=== PATIENT | male | born 1965 | race Two or more races ===

== ENCOUNTER 2019-12-24 19:38 | Inpatient (IN) | payer OTHER, SELFPAY ==
--- NOTE | 2019-12-24 | US_ITS ---
EXAMINATION: ULTRASOUND OF KIDNEYS. CLINICAL INFORMATION: Known renal stones. Assess for obstructive hydronephrosis. COMPARISON: CT abdomen pelvis 09/03/2016 TECHNIQUE: Grayscale ultrasound and color Doppler exam of kidneys. FINDINGS: Right kidney: The kidney measures 11.9 x 5.6 x 5.9 cm. There is moderate hydronephrosis. There is distention renal pelvis calyces and the ureter. There is an obstructing stone in the distal ureter measuring 0.6 x 0.4 x 0.6 cm. No ureteral jet present in the bladder. There is a nonobstructive 3 mm stone in the upper pole the right kidney. Left kidney: The kidney measures 11.6 x 5.6 x 5.1 cm. There is no hydronephrosis or hydroureter. Ureteral jet is seen on the left in the bladder. There is a nonobstructive stone in the midpole measuring 3 mm. In the upper pole there is a septated 1.6 cm cyst. The septation is thin. Bladder: Ureteral jet seen on the left but not on the right. IMPRESSION: 1. Moderate hydronephrosis of right kidney. Obstructing 6 mm stone in the distal left ureter. 2. Nonobstructive 3 mm stone upper pole right kidney. 3. Nonobstructive 3 mm stone mid pole of left kidney. 4. Septated cyst upper pole cortex left kidney 1.6 cm.
--- NOTE | 2019-12-24 | CT_ITS ---
EXAMINATION: CT ABDOMEN AND PELVIS WITHOUT CONTRAST CLINICAL INFORMATION: Abdominal pain, bilateral renal colic. COMPARISON: Ultrasound kidneys earlier today and CT abdomen and pelvis 09/03/2016. TECHNIQUE: Multidetector volumetric imaging was performed from the superior aspect of the liver through the pubic symphysis. Sagittal and coronal reformatted images were obtained on the technologist's workstation. This CT examination was performed using dose optimization techniques as appropriate, variously including the following: *Automated exposure control. *Adjustment of mA and/or kV according to patient size (this includes techniques or standardized protocols for targeted exams where dose is matched to indication/reason for exam; i.e. extremities or head). *Use of iterative reconstruction technique. DLP: 524 mGy-cm FINDINGS: LUNG BASES: The visualized lung bases are unremarkable. LIVER, GALLBLADDER, AND BILIARY TREE: The liver demonstrates hepatic steatosis. No focal mass or bile duct dilatation is seen. The gallbladder is unremarkable with no evidence of radiopaque gallstones, gallbladder wall thickening, or obvious pericholecystic inflammatory changes. PANCREAS: Unremarkable. SPLEEN: Unremarkable. ADRENAL GLANDS: Unremarkable. KIDNEYS AND URETERS: Right: Right-sided hydronephrosis is present along with dilatation of the ureter down to the level of an obstructing 4.2 x 2.9 x 3.9 mm ureteral stone approximately 5 cm above the ureterovesical junction. Interestingly, the CT scan performed in 2016 demonstrated an obstructing calculus at the exact same level. At least 3 other small punctate non-obstructing calculi are seen in the right kidney, the largest measuring 2.6 mm. No renal masses are seen. Left: A single tiny 2 mm punctate calcification is present in the mid left kidney. No left-sided hydronephrosis is seen. A small cyst is noted at the very upper pole of the left kidney. No solid renal masses are detected. The left ureter is not dilated. BLADDER AND PROSTATE: The bladder is small with a symmetrically thickened wall. No bladder calculi are seen. The prostate is moderately enlarged measuring 4.5 x 3.8 x 3.2 cm. Seminal vesicles appear normal. GASTROINTESTINAL TRACT: The small and large bowel are unremarkable. The appendix is unremarkable. ABDOMINAL WALL: No significant hernia is appreciated. LYMPH NODES: No retroperitoneal adenopathy. VASCULAR: Mild calcific atherosclerotic changes are present. PELVIC VISCERA: An abnormal pelvic mass is not seen. No free fluid is present. OSSEOUS STRUCTURES: Unremarkable. IMPRESSION: 1. Obstructing right distal ureteral calculus measuring 4.2 x 2.9 x 3.9 mm. Interestingly, in 2017 an obstructing stone was present at the exact same level. 2. Bilateral non-obstructing intrarenal punctate calculi. 3. BPH. 4. Hepatic steatosis.
[2019-12-24 19:41] VITALS: BP 191/108; PULSE 104; RESP 18; TEMP 36.4; O2SAT 96; BMI 24.0
[2019-12-24 19:57] VITALS: BP 178/119; PULSE 96; RESP 20; TEMP 36.8; O2SAT 98
--- NOTE | 2019-12-24 20:00 | ED.MALEGU ---
HPI - Male Genitourinary General Chief complaint: Urogenital-Male <JUANJOSE Glasgow - Last Filed: 12/24/19 21:11> Stated complaint: kidney stones <JUANJOSE Glasgow - Last Filed: 12/24/19 21:11> Time Seen by Provider: 12/24/19 19:55 <JUANJOSE Glasgow - Last Filed: 12/24/19 21:11> Source: patient <JUANJOSE Glasgow - Last Filed: 12/24/19 21:11> Mode of arrival: ambulatory <JUANJOSE Glasgow - Last Filed: 12/24/19 21:11> Limitations: no limitations <JUANJOSE Glasgow - Last Filed: 12/24/19 21:11> History of Present Illness HPI Narrative: 54 y/o male with history of hepatitis C s/p treatment, asthma, HTN, history of kidney stones requiring intervention by Urology in [facility] in 2011 presenting with right sided flank pain. He was seen at [facility] recently and diagnosed with kidney stones. <JUANJOSE Glasgow - Last Filed: 12/24/19 21:11> Onset (ago): day(s) <JUANJOSE Glasgow - Last Filed: 12/24/19 21:11> Duration: intermittent <JUANJOSE Glasgow - Last Filed: 12/24/19 21:11> Location: right flank <JUANJOSE Glasgow - Last Filed: 12/24/19 21:11> Radiation: right inguinal region <JUANJOSE Glasgow - Last Filed: 12/24/19 21:11> Severity: severe <JUANJOSE Glasgow - Last Filed: 12/24/19 21:11> Severity scale (1-10): 10 <JUANJOSE Glasgow - Last Filed: 12/24/19 21:11> Quality: sharp <JUANJOSE Glasgow - Last Filed: 12/24/19 21:11> Relieving factors: none <JUANJOSE Glasgow - Last Filed: 12/24/19 21:11> Exacerbating factors: movement <JUANJOSE Glasgow - Last Filed: 12/24/19 21:11> Associated symptoms: Reports blood in urine and nausea/vomiting <JUANJOSE Glasgow - Last Filed: 12/24/19 21:11> Related Data Allergies/Adverse reactions: Allergies Allergy/AdvReac Type Severity Reaction Status Date / Time No Known Allergies Allergy Verified 12/24/19 19:41 <JUANJOSE Glasgow - Last Filed: 12/24/19 21:11> Review of Systems Review of Systems: Constitutional: No Fever, No Chills ENT/Mouth: No sore throat, No Rhinorrhea, No Swallowing Difficulty Eyes: No Eye Pain, No Swelling, No Redness Cardiovascular: No Chest Pain, No SOB, No Orthopnea Respiratory: No Cough, No Sputum, No Wheezing Gastrointestinal: + Nausea, + Vomiting, No Diarrhea, + abdominal Pain, No Hematochezia, No Melena Genitourinary: + Dysuria, No Urinary Frequency,+ Hematuria Musculoskeletal: No joint pain, No Myalgias Skin: No Skin Lesions, No rash Neuro: No Weakness, No Numbness, No Dizziness, No Headache Psych: No Anxiety/Panic, No Depression Heme/Lymph: No Bruising, No Lymphadenopathy Endocrine: No Polyuria, No Polydipsia All other 10 point ROS are negative. <JUANJOSE Glasgow - Last Filed: 12/24/19 21:11> [facility] Past Medical History Attestation statement: The following information was validated with the patient. <JUANJOSE Glasgow - Last Filed: 12/24/19 21:11> Medical History: Medical History Asthma Kidney stones <JUANJOSE Glasgow - Last Filed: 12/24/19 21:11> Social History Social History: Social History Alcohol intake: current Alcohol intake frequency: a few times a week Smoking Status: Current every day smoker Smoked in Last 30 Days: Yes Use of substances other than those prescribed or required for medical reasons: No Advance Directives: No Advance Directives Information Provided: Yes <JUANJOSE Glasgow - Last Filed: 12/24/19 21:11> Physical Exam Vital Signs and I&O and Narrative: Vital Signs and I&O: Vital Signs Temp 98.0 F 12/24/19 22:17 Pulse 86 12/24/19 22:17 Resp 18 10/04/20 22:17 BP 176/101 H 12/24/19 22:17 Pulse Ox 98 12/24/19 22:17 Intake & Output 12/24/19 12/24/19 12/25/19 06:59 18:59 06:59 Intake Total 1000 / 1000 Balance 1000 / 1000 Weight 73.936 kg Intake: Intake, IV Amoun t 1000 / 1000 0.9 % Sodium C hloride 1,000 ml 1000 / 1000 @ 999 mls/hr I VCONT .Q1H1M [facility] Rx#:[id number] Body Mass Index 24.0 Appearance: appears uncomfortable, appears to be in pain Eyes: Pupils equal, round and reactive to light. Neck: Normal inspection. Neck supple. CVS: rapid heart rate, regular rhythm. Pulses normal. Respiratory: No respiratory distress. Breath sounds normal. Abdomen: Soft. tender RLQ. +BS x4, +CVA tenderness on the right Skin: Skin warm and dry. Normal skin color. Normal skin turgor. No rashes. Extremities: No lower extremity edema. Neuro: Oriented X 3. No motor deficit. No sensory deficit. <JUANJOSE Glasgow - Last Filed: 12/24/19 21:11> Vital Signs and I&O: Vital Signs Temp 98.0 F 12/24/19 22:17 Pulse 86 12/24/19 22:17 Resp 18 12/24/19 22:17 BP 176/101 H 12/24/19 22:17 Pulse Ox 98 12/24/19 22:17 Intake & Output 12/24/19 12/24/19 12/25/19 06:59 18:59 06:59 Intake Total 1000 / 1000 Balance 1000 / 1000 Weight 73.936 kg Intake: Intake, IV Amoun t 1000 / 1000 0.9 % Sodium C hloride 1,000 ml 1000 / 1000 @ 999 mls/hr I VCONT .Q1H1M [facility] Rx#:[id number] Body Mass Index 24.0 <Orlin Fulton DO - Last Filed: 12/24/19 23:26> Course Course Hospital Course: patient presenting with right flank pain and known right kidney stones dx at [facility] last week per patient - trying to obtain records now. will get labs, UA and Renal U/S to assess for obstructive uropathy/hydropneohrosis. IV morphine, IV decadron, IVF ordered for now. Dispo pending results and improvement. <JUANJOSE Glasgow - Last Filed: 12/24/19 21:11> MDM - Male Genitourinary MDM Narrative Medical decision making narrative: concern for obstructive kidney stone vs pyelonpehritis. <JUANJOSE Glasgow - Last Filed: 12/24/19 21:11> Differential Diagnosis Differential diagnosis: Likely urinary tract infection, urethritis, epididymitis and acute retention of urine <JUANJOSE Glasgow - Last Filed: 12/24/19 21:11> Lab Data Attestation: I reviewed the patient's lab results. <JUANJOSE Glasgow - Last Filed: 12/24/19 21:11> Result diagrams: : 12/24/19 20:27 12/24/19 20:27 <JUANJOSE Glasgow - Last Filed: 12/24/19 21:11> Labs: Lab Results 12/24/19 12/24/19 12/24/19 Range/Units 20:27 20:27 20:27 WBC 8.6 (4.8-10.8) X10*3/uL RBC 4.65 (4.60-5.80) X10*6/uL Hgb 16.7 (14.0-18.0) g/dl Hct 46.6 (42-52) % MCV 100.2 H (80-98) fL MCH 35.9 H (27.0-33.0) pg MCHC 35.8 (31.0-36.0) g/dl RDW 14.1 (11.0-16.0) % Plt Count 268 (160-400) X10*3/uL MPV 9.9 (9.4-12.4) fL Immature Gran % (Auto) 0.3 (0.0-0.4) % Neut % (Auto) 68.2 (45-73) % Lymph % (Auto) 21.0 (20-40) % [place] % (Auto) 8.7 (2-11) % Eos % (Auto) 1.2 (0-4) % Baso % (Auto) 0.6 (0-2) % Neut # (Auto) 5.9 (2.0-8.3) X10*3/uL Lymph # (Auto) 1.8 (1.2-4.9) X10*3/uL [place] # (Auto) 0.8 (0.1-1.2) X10*3/uL Eos # (Auto) 0.1 (0.0-0.4) X10*3/uL Baso # (Auto) 0.1 (0.0-0.2) X10*3/uL Abs Immat Gran (auto) 0.03 (0.00-0.03) X10*3/uL Absolute Nucleated RBC 0.000 (0.0-0.012) X10*3/uL Nucleated RBC % (auto) 0.0 (0.0-0.2) /100WBC Hold Blue Top SEE NOTE Sodium 140 (135-145) mmol/L Potassium 4.1 (3.3-5.1) mmol/l Chloride 103 (96-108) mmol/L Carbon Dioxide 24 (22-29) mmol/L Anion Gap 17 (12-20) BUN 8 L (9-16) mg/dL Creatinine 1.00 (0.5-1.4) mg/dL Estim Creat Clear Calc 85.4 Estimated GFR > 60 Random Glucose 114 (60-115) mg/dL Calcium 9.6 (8.4-10.2) mg/dL Total Bilirubin 0.7 (0.0-1.0) mg/dL AST 98 H (5-37) U/L ALT 99 H (0-40) U/L Alkaline Phosphatase 96 (39-117) U/L Total Protein 7.6 (6.5-8.0) g/dL Albumin 4.2 (3.5-5.0) g/dL Urine Color Urine Appearance Urine pH (5.0-8.0) Ur Specific [place] (1.005-1.025) Urine Protein (NEG-TRACE) MG/DL Urine Glucose (UA) (NEG) MG/DL Urine Ketones (NEG) MG/DL Urine Blood (NEG) Urine Nitrite (NEG) Ur Leukocyte Esterase (NEG) Urine RBC (0) /HPF Urine WBC (0-4) /HPF Ur Squamous Epith Cells /LPF Urine Bacteria /LPF Urine Mucus /LPF 10/04/20 Range/Units 22:30 WBC (4.8-10.8) X10*3/uL RBC (4.60-5.80) X10*6/uL Hgb (14.0-18.0) g/dl Hct (42-52) % MCV (80-98) fL MCH (27.0-33.0) pg MCHC (31.0-36.0) g/dl RDW (11.0-16.0) % Plt Count (160-400) X10*3/uL MPV (9.4-12.4) fL Immature Gran % (Auto) (0.0-0.4) % Neut % (Auto) (45-73) % Lymph % (Auto) (20-40) % [place] % (Auto) (2-11) % Eos % (Auto) (0-4) % Baso % (Auto) (0-2) % Neut # (Auto) (2.0-8.3) X10*3/uL Lymph # (Auto) (1.2-4.9) X10*3/uL [place] # (Auto) (0.1-1.2) X10*3/uL Eos # (Auto) (0.0-0.4) X10*3/uL Baso # (Auto) (0.0-0.2) X10*3/uL Abs Immat Gran (auto) (0.00-0.03) X10*3/uL Absolute Nucleated RBC (0.0-0.012) X10*3/uL Nucleated RBC % (auto) (0.0-0.2) /100WBC Hold Blue Top Sodium (135-145) mmol/L Potassium (3.3-5.1) mmol/l Chloride (96-108) mmol/L Carbon Dioxide (22-29) mmol/L Anion Gap (12-20) BUN (9-16) mg/dL Creatinine (0.5-1.4) mg/dL Estim Creat Clear Calc Estimated GFR Random Glucose (60-115) mg/dL Calcium (8.4-10.2) mg/dL Total Bilirubin (0.0-1.0) mg/dL AST (5-37) U/L ALT (0-40) U/L Alkaline Phosphatase (39-117) U/L Total Protein (6.5-8.0) g/dL Albumin (3.5-5.0) g/dL Urine Color YELLOW Urine Appearance CLEAR Urine pH 7.0 (5.0-8.0) Ur Specific [place] 1.020 (1.005-1.025) Urine Protein TRACE (NEG-TRACE) MG/DL Urine Glucose (UA) NEG (NEG) MG/DL Urine Ketones NEG (NEG) MG/DL Urine Blood 2+ H (NEG) Urine Nitrite NEG (NEG) Ur Leukocyte Esterase NEG (NEG) Urine RBC 15-29 H (0) /HPF Urine WBC 0-2 (0-4) /HPF Ur Squamous Epith Cells 2+ /LPF Urine Bacteria NONE /LPF Urine Mucus 1+ /LPF <JUANJOSE Glasgow - Last Filed: 12/24/19 21:11> Lab Results 12/24/19 12/24/19 12/24/19 Range/Units 20:27 20:27 20:27 WBC 8.6 (4.8-10.8) X10*3/uL RBC 4.65 (4.60-5.80) X10*6/uL Hgb 16.7 (14.0-18.0) g/dl Hct 46.6 (42-52) % MCV 100.2 H (80-98) fL MCH 35.9 H (27.0-33.0) pg MCHC 35.8 (31.0-36.0) g/dl RDW 14.1 (11.0-16.0) % Plt Count 268 (160-400) X10*3/uL MPV 9.9 (9.4-12.4) fL Immature Gran % (Auto) 0.3 (0.0-0.4) % Neut % (Auto) 68.2 (45-73) % Lymph % (Auto) 21.0 (20-40) % [place] % (Auto) 8.7 (2-11) % Eos % (Auto) 1.2 (0-4) % Baso % (Auto) 0.6 (0-2) % Neut # (Auto) 5.9 (2.0-8.3) X10*3/uL Lymph # (Auto) 1.8 (1.2-4.9) X10*3/uL [place] # (Auto) 0.8 (0.1-1.2) X10*3/uL Eos # (Auto) 0.1 (0.0-0.4) X10*3/uL Baso # (Auto) 0.1 (0.0-0.2) X10*3/uL Abs Immat Gran (auto) 0.03 (0.00-0.03) X10*3/uL Absolute Nucleated RBC 0.000 (0.0-0.012) X10*3/uL Nucleated RBC % (auto) 0.0 (0.0-0.2) /100WBC Hold Blue Top SEE NOTE Sodium 140 (135-145) mmol/L Potassium 4.1 (3.3-5.1) mmol/l Chloride 103 (96-108) mmol/L Carbon Dioxide 24 (22-29) mmol/L Anion Gap 17 (12-20) BUN 8 L (9-16) mg/dL Creatinine 1.00 (0.5-1.4) mg/dL Estim Creat Clear Calc 85.4 Estimated GFR > 60 Random Glucose 114 (60-115) mg/dL Calcium 9.6 (8.4-10.2) mg/dL Total Bilirubin 0.7 (0.0-1.0) mg/dL AST 98 H (5-37) U/L ALT 99 H (0-40) U/L Alkaline Phosphatase 96 (39-117) U/L Total Protein 7.6 (6.5-8.0) g/dL Albumin 4.2 (3.5-5.0) g/dL Urine Color Urine Appearance Urine pH (5.0-8.0) Ur Specific [place] (1.005-1.025) Urine Protein (NEG-TRACE) MG/DL Urine Glucose (UA) (NEG) MG/DL Urine Ketones (NEG) MG/DL Urine Blood (NEG) Urine Nitrite (NEG) Ur Leukocyte Esterase (NEG) Urine RBC (0) /HPF Urine WBC (0-4) /HPF Ur Squamous Epith Cells /LPF Urine Bacteria /LPF Urine Mucus /LPF 12/24/19 Range/Units 22:30 WBC (4.8-10.8) X10*3/uL RBC (4.60-5.80) X10*6/uL Hgb (14.0-18.0) g/dl Hct (42-52) % MCV (80-98) fL MCH (27.0-33.0) pg MCHC (31.0-36.0) g/dl RDW (11.0-16.0) % Plt Count (160-400) X10*3/uL MPV (9.4-12.4) fL Immature Gran % (Auto) (0.0-0.4) % Neut % (Auto) (45-73) % Lymph % (Auto) (20-40) % [place] % (Auto) (2-11) % Eos % (Auto) (0-4) % Baso % (Auto) (0-2) % Neut # (Auto) (2.0-8.3) X10*3/uL Lymph # (Auto) (1.2-4.9) X10*3/uL [place] # (Auto) (0.1-1.2) X10*3/uL Eos # (Auto) (0.0-0.4) X10*3/uL Baso # (Auto) (0.0-0.2) X10*3/uL Abs Immat Gran (auto) (0.00-0.03) X10*3/uL Absolute Nucleated RBC (0.0-0.012) X10*3/uL Nucleated RBC % (auto) (0.0-0.2) /100WBC Hold Blue Top Sodium (135-145) mmol/L Potassium (3.3-5.1) mmol/l Chloride (96-108) mmol/L Carbon Dioxide (22-29) mmol/L Anion Gap (12-20) BUN (9-16) mg/dL Creatinine (0.5-1.4) mg/dL Estim Creat Clear Calc Estimated GFR Random Glucose (60-115) mg/dL Calcium (8.4-10.2) mg/dL Total Bilirubin (0.0-1.0) mg/dL AST (5-37) U/L ALT (0-40) U/L Alkaline Phosphatase (39-117) U/L Total Protein (6.5-8.0) g/dL Albumin (3.5-5.0) g/dL Urine Color YELLOW Urine Appearance CLEAR Urine pH 7.0 (5.0-8.0) Ur Specific [place] 1.020 (1.005-1.025) Urine Protein TRACE (NEG-TRACE) MG/DL Urine Glucose (UA) NEG (NEG) MG/DL Urine Ketones NEG (NEG) MG/DL Urine Blood 2+ H (NEG) Urine Nitrite NEG (NEG) Ur Leukocyte Esterase NEG (NEG) Urine RBC 15-29 H (0) /HPF Urine WBC 0-2 (0-4) /HPF Ur Squamous Epith Cells 2+ /LPF Urine Bacteria NONE /LPF Urine Mucus 1+ /LPF <Orlin Fulton DO - Last Filed: 12/24/19 23:26> Discharge Plan Discharge Clinical Impression: Renal colic on right side <JUANJOSE Glasgow - Last Filed: 12/24/19 21:11>
[2019-12-24] MEDS: Ketorolac Tromethamine 30 MG/ML VIAL IVPUSH (20:14)
[2019-12-24] MEDS: Morphine Sulfate 4 MG/ML CARTRIDGE IVPUSH ×2 (20:15→21:35)
[2019-12-24] MEDS: dexAMETHasone sod phosphate 4 MG/ML VIAL 8 MG IVPUSH (20:17)
[2019-12-24] MEDS: 0.9 % Sodium Chloride 1,000 ML 999 ML IVCONT (20:20)
[2019-12-24 20:31] VITALS: BP 169/103; PULSE 84; RESP 18; TEMP 36.7; O2SAT 98
[2019-12-24 20:32] LABS: MANUAL DIFF FLAG NO
[2019-12-24 20:33] LABS: Basophils Absolute Auto 0.1 X10*3/uL (0.0-0.2); Basophils Percent Auto 0.6 % (0-2); Eosinophils Absolute Auto 0.1 X10*3/uL (0.0-0.4); Eosinophils Percent Auto 1.2 % (0-4); Hematocrit 46.6 % (42-52); Hemoglobin 16.7 g/dl (14.0-18.0); Imm Gran Abs Auto 0.03 X10*3/uL (0.00-0.03); Imm Gran Pct Auto 0.3 % (0.0-0.4); Lymphocytes Absolute Auto 1.8 X10*3/uL (1.2-4.9); Mean Corpuscular HGB Conc 35.8 g/dl (31.0-36.0); Mean Corpuscular Hemoglobin 35.9 pg (27.0-33.0); Mean Corpuscular Volume 100.2 fL (80-98); Mean Platelet Volume 9.9 fL (9.4-12.4); Monocytes Absolute Auto 0.8 X10*3/uL (0.1-1.2); Monocytes Percent Auto 8.7 % (2-11); Neutrophils Absolute Auto 5.9 X10*3/uL (2.0-8.3); Neutrophils Percent Auto 68.2 % (45-73); Platelet Count 268 X10*3/uL (160-400); Red Blood Count 4.65 X10*6/uL (4.60-5.80); Red Cell Distribution Width 14.1 % (11.0-16.0); White Blood Count 8.6 X10*3/uL (4.8-10.8)
[2019-12-24 20:57] LABS: Alanine Aminotransferase 99 U/L (0-40); Albumin Level 4.2 g/dL (3.5-5.0); Alkaline Phosphatase 96 U/L (39-117); Anion Gap 17 (12-20); Aspartate Amino Transferase 98 U/L (5-37); Bilirubin Total 0.7 mg/dL (0.0-1.0); Blood Urea Nitrogen 8 mg/dL (9-16); Calcium 9.6 mg/dL (8.4-10.2); Carbon Dioxide 24 mmol/L (22-29); Chloride 103 mmol/L (96-108); Creatinine Clr Calc Pharmacy 85.4; Estimated Glomerular Filt Rate > 60; Glucose Random 114 mg/dL (60-115); Potassium 4.1 mmol/l (3.3-5.1); Sodium 140 mmol/L (135-145); Total Protein 7.6 g/dL (6.5-8.0)
--- NOTE | 2019-12-24 21:56 | ED_ITS ---
HPI - Abdominal Pain General Chief Complaint: Urogenital-Male <STEF Daniel Last Filed: 12/25/19 03:07> Stated Complaint: kidney stones <Aline Soto NP - Last Filed: 12/25/19 03:07> Time Seen by Provider: 12/24/19 19:55 <STEF Daniel Last Filed: 12/25/19 03:07> Source: patient <STEF Daniel Last Filed: 12/25/19 03:07> Mode of arrival: ambulatory <Aline Soto NP - Last Filed: 12/25/19 03:07> Limitations: no limitations <STEF Daniel Last Filed: 12/25/19 03:07> History of Present Illness Severity: severe <STEF Daniel Last Filed: 12/25/19 03:07> Related Data Home Medications: Home Medications Medication Instructions Recorded Confirmed albuterol 12/25/19 lisinopril 12/25/19 melatonin 12/25/19 <STEF Daniel Last Filed: 12/25/19 03:07> Allergies/Adverse Reactions: Allergies Allergy/AdvReac Type Severity Reaction Status Date / Time No Known Allergies Allergy Verified 12/24/19 19:41 <STEF Daniel Last Filed: 12/25/19 03:07> Physical Exam Vital Signs and I&O and Narrative: Vital Signs and I&O: Vital Signs Temp 96.9 F 12/25/19 08:00 Pulse 85 12/25/19 08:00 Resp 20 12/25/19 08:00 BP 148/95 H 12/25/19 08:00 Pulse Ox 95 12/25/19 08:00 Intake & Output 12/25/19 12/25/19 12/26/19 06:59 18:59 06:59 Intake Total 1000 / 1120 Balance 1000 / 670 Weight 73.936 kg Intake: Intake, IV Amoun t 1000 / 1000 0.9 % Sodium C hloride 1,000 ml 1000 / 1000 @ 999 mls/hr I VCONT .Q1H1M [facility] Rx#:[id number] Body Mass Index 24.0 <STEF Daniel Last Filed: 12/25/19 03:07> Vital Signs and I&O: Vital Signs Temp 96.9 F 12/25/19 08:00 Pulse 85 12/25/19 08:00 Resp 20 12/25/19 08:00 BP 148/95 H 12/25/19 08:00 Pulse Ox 95 12/25/19 08:00 Intake & Output 12/25/19 12/25/19 12/26/19 06:59 18:59 06:59 Intake Total 1000 / 1120 Balance 1000 / 670 Weight 73.936 kg Intake: Intake, IV Amoun t 1000 / 1000 0.9 % Sodium C hloride 1,000 ml 1000 / 1000 @ 999 mls/hr I VCONT .Q1H1M [facility] Rx#:[id number] Body Mass Index 24.0 <Orlin Fulton DO - Last Filed: 12/25/19 20:41> Course Course Hospital Course: patient was admitted for obstructing stone, he was offered cystoscopy but elected to leave AMA. he is aware of risks incluyding . <Aline Soto NP - Last Filed: 12/25/19 03:07> MDM - Abdominal Pain Differential Diagnosis Differential diagnosis: Likely calculus of kidney <Aline Soto NP - Last Filed: 12/25/19 03:07> Medical Records Attestation: I reviewed the patient's medical records. <Aline Soto NP - Last Filed: 12/25/19 03:07> Lab Data Attestation: I reviewed the patient's lab results. <Aline Soto NP - Last Filed: 12/25/19 03:07> Result diagrams: : 12/25/19 06:11 12/25/19 06:11 <Aline Soto NP - Last Filed: 12/25/19 03:07> Labs: Lab Results 12/24/19 12/24/19 12/24/19 Range/Units 20:27 20:27 20:27 WBC 8.6 (4.8-10.8) X10*3/uL RBC 4.65 (4.60-5.80) X10*6/uL Hgb 16.7 (14.0-18.0) g/dl Hct 46.6 (42-52) % MCV 100.2 H (80-98) fL MCH 35.9 H (27.0-33.0) pg MCHC 35.8 (31.0-36.0) g/dl RDW 14.1 (11.0-16.0) % Plt Count 268 (160-400) X10*3/uL MPV 9.9 (9.4-12.4) fL Immature Gran % (Auto) 0.3 (0.0-0.4) % Neut % (Auto) 68.2 (45-73) % Lymph % (Auto) 21.0 (20-40) % [place] % (Auto) 8.7 (2-11) % Eos % (Auto) 1.2 (0-4) % Baso % (Auto) 0.6 (0-2) % Neut # (Auto) 5.9 (2.0-8.3) X10*3/uL Lymph # (Auto) 1.8 (1.2-4.9) X10*3/uL [place] # (Auto) 0.8 (0.1-1.2) X10*3/uL Eos # (Auto) 0.1 (0.0-0.4) X10*3/uL Baso # (Auto) 0.1 (0.0-0.2) X10*3/uL Abs Immat Gran (auto) 0.03 (0.00-0.03) X10*3/uL Absolute Nucleated RBC 0.000 (0.0-0.012) X10*3/uL Nucleated RBC % (auto) 0.0 (0.0-0.2) /100WBC Hold Blue Top SEE NOTE Sodium 140 (135-145) mmol/L Potassium 4.1 (3.3-5.1) mmol/l Chloride 103 (96-108) mmol/L Carbon Dioxide 24 (22-29) mmol/L Anion Gap 17 (12-20) BUN 8 L (9-16) mg/dL Creatinine 1.00 (0.5-1.4) mg/dL Estim Creat Clear Calc 85.4 Estimated GFR > 60 Random Glucose 114 (60-115) mg/dL Calcium 9.6 (8.4-10.2) mg/dL Total Bilirubin 0.7 (0.0-1.0) mg/dL AST 98 H (5-37) U/L ALT 99 H (0-40) U/L Alkaline Phosphatase 96 (39-117) U/L Total Protein 7.6 (6.5-8.0) g/dL Albumin 4.2 (3.5-5.0) g/dL Urine Color Urine Appearance Urine pH (5.0-8.0) Ur Specific [place] (1.005-1.025) Urine Protein (NEG-TRACE) MG/DL Urine Glucose (UA) (NEG) MG/DL Urine Ketones (NEG) MG/DL Urine Blood (NEG) Urine Nitrite (NEG) Ur Leukocyte Esterase (NEG) Urine RBC (0) /HPF Urine WBC (0-4) /HPF Ur Squamous Epith Cells /LPF Urine Bacteria /LPF Urine Mucus /LPF 12/24/19 Range/Units 22:30 WBC (4.8-10.8) X10*3/uL RBC (4.60-5.80) X10*6/uL Hgb (14.0-18.0) g/dl Hct (42-52) % MCV (80-98) fL MCH (27.0-33.0) pg MCHC (31.0-36.0) g/dl RDW (11.0-16.0) % Plt Count (160-400) X10*3/uL MPV (9.4-12.4) fL Immature Gran % (Auto) (0.0-0.4) % Neut % (Auto) (45-73) % Lymph % (Auto) (20-40) % [place] % (Auto) (2-11) % Eos % (Auto) (0-4) % Baso % (Auto) (0-2) % Neut # (Auto) (2.0-8.3) X10*3/uL Lymph # (Auto) (1.2-4.9) X10*3/uL [place] # (Auto) (0.1-1.2) X10*3/uL Eos # (Auto) (0.0-0.4) X10*3/uL Baso # (Auto) (0.0-0.2) X10*3/uL Abs Immat Gran (auto) (0.00-0.03) X10*3/uL Absolute Nucleated RBC (0.0-0.012) X10*3/uL Nucleated RBC % (auto) (0.0-0.2) /100WBC Hold Blue Top Sodium (135-145) mmol/L Potassium (3.3-5.1) mmol/l Chloride (96-108) mmol/L Carbon Dioxide (22-29) mmol/L Anion Gap (12-20) BUN (9-16) mg/dL Creatinine (0.5-1.4) mg/dL Estim Creat Clear Calc Estimated GFR Random Glucose (60-115) mg/dL Calcium (8.4-10.2) mg/dL Total Bilirubin (0.0-1.0) mg/dL AST (5-37) U/L ALT (0-40) U/L Alkaline Phosphatase (39-117) U/L Total Protein (6.5-8.0) g/dL Albumin (3.5-5.0) g/dL Urine Color YELLOW Urine Appearance CLEAR Urine pH 7.0 (5.0-8.0) Ur Specific [place] 1.020 (1.005-1.025) Urine Protein TRACE (NEG-TRACE) MG/DL Urine Glucose (UA) NEG (NEG) MG/DL Urine Ketones NEG (NEG) MG/DL Urine Blood 2+ H (NEG) Urine Nitrite NEG (NEG) Ur Leukocyte Esterase NEG (NEG) Urine RBC 15-29 H (0) /HPF Urine WBC 0-2 (0-4) /HPF Ur Squamous Epith Cells 2+ /LPF Urine Bacteria NONE /LPF Urine Mucus 1+ /LPF <Aline Soto NP - Last Filed: 12/25/19 03:07> Lab Results 12/24/19 12/24/19 12/24/19 Range/Units 20:27 20:27 20:27 WBC 8.6 (4.8-10.8) X10*3/uL RBC 4.65 (4.60-5.80) X10*6/uL Hgb 16.7 (14.0-18.0) g/dl Hct 46.6 (42-52) % MCV 100.2 H (80-98) fL MCH 35.9 H (27.0-33.0) pg MCHC 35.8 (31.0-36.0) g/dl RDW 14.1 (11.0-16.0) % Plt Count 268 (160-400) X10*3/uL MPV 9.9 (9.4-12.4) fL Immature Gran % (Auto) 0.3 (0.0-0.4) % Neut % (Auto) 68.2 (45-73) % Lymph % (Auto) 21.0 (20-40) % [place] % (Auto) 8.7 (2-11) % Eos % (Auto) 1.2 (0-4) % Baso % (Auto) 0.6 (0-2) % Neut # (Auto) 5.9 (2.0-8.3) X10*3/uL Lymph # (Auto) 1.8 (1.2-4.9) X10*3/uL [place] # (Auto) 0.8 (0.1-1.2) X10*3/uL Eos # (Auto) 0.1 (0.0-0.4) X10*3/uL Baso # (Auto) 0.1 (0.0-0.2) X10*3/uL Abs Immat Gran (auto) 0.03 (0.00-0.03) X10*3/uL Absolute Nucleated RBC 0.000 (0.0-0.012) X10*3/uL Nucleated RBC % (auto) 0.0 (0.0-0.2) /100WBC Hold Blue Top SEE NOTE Sodium 140 (135-145) mmol/L Potassium 4.1 (3.3-5.1) mmol/l Chloride 103 (96-108) mmol/L Carbon Dioxide 24 (22-29) mmol/L Anion Gap 17 (12-20) BUN 8 L (9-16) mg/dL Creatinine 1.00 (0.5-1.4) mg/dL Estim Creat Clear Calc 85.4 Estimated GFR > 60 Random Glucose 114 (60-115) mg/dL Calcium 9.6 (8.4-10.2) mg/dL Total Bilirubin 0.7 (0.0-1.0) mg/dL AST 98 H (5-37) U/L ALT 99 H (0-40) U/L Alkaline Phosphatase 96 (39-117) U/L Total Protein 7.6 (6.5-8.0) g/dL Albumin 4.2 (3.5-5.0) g/dL Urine Color Urine Appearance Urine pH (5.0-8.0) Ur Specific [place] (1.005-1.025) Urine Protein (NEG-TRACE) MG/DL Urine Glucose (UA) (NEG) MG/DL Urine Ketones (NEG) MG/DL Urine Blood (NEG) Urine Nitrite (NEG) Ur Leukocyte Esterase (NEG) Urine RBC (0) /HPF Urine WBC (0-4) /HPF Ur Squamous Epith Cells /LPF Urine Bacteria /LPF Urine Mucus /LPF 12/24/19 Range/Units 22:30 WBC (4.8-10.8) X10*3/uL RBC (4.60-5.80) X10*6/uL Hgb (14.0-18.0) g/dl Hct (42-52) % MCV (80-98) fL MCH (27.0-33.0) pg MCHC (31.0-36.0) g/dl RDW (11.0-16.0) % Plt Count (160-400) X10*3/uL MPV (9.4-12.4) fL Immature Gran % (Auto) (0.0-0.4) % Neut % (Auto) (45-73) % Lymph % (Auto) (20-40) % [place] % (Auto) (2-11) % Eos % (Auto) (0-4) % Baso % (Auto) (0-2) % Neut # (Auto) (2.0-8.3) X10*3/uL Lymph # (Auto) (1.2-4.9) X10*3/uL [place] # (Auto) (0.1-1.2) X10*3/uL Eos # (Auto) (0.0-0.4) X10*3/uL Baso # (Auto) (0.0-0.2) X10*3/uL Abs Immat Gran (auto) (0.00-0.03) X10*3/uL Absolute Nucleated RBC (0.0-0.012) X10*3/uL Nucleated RBC % (auto) (0.0-0.2) /100WBC Hold Blue Top Sodium (135-145) mmol/L Potassium (3.3-5.1) mmol/l Chloride (96-108) mmol/L Carbon Dioxide (22-29) mmol/L Anion Gap (12-20) BUN (9-16) mg/dL Creatinine (0.5-1.4) mg/dL Estim Creat Clear Calc Estimated GFR Random Glucose (60-115) mg/dL Calcium (8.4-10.2) mg/dL Total Bilirubin (0.0-1.0) mg/dL AST (5-37) U/L ALT (0-40) U/L Alkaline Phosphatase (39-117) U/L Total Protein (6.5-8.0) g/dL Albumin (3.5-5.0) g/dL Urine Color YELLOW Urine Appearance CLEAR Urine pH 7.0 (5.0-8.0) Ur Specific [place] 1.020 (1.005-1.025) Urine Protein TRACE (NEG-TRACE) MG/DL Urine Glucose (UA) NEG (NEG) MG/DL Urine Ketones NEG (NEG) MG/DL Urine Blood 2+ H (NEG) Urine Nitrite NEG (NEG) Ur Leukocyte Esterase NEG (NEG) Urine RBC 15-29 H (0) /HPF Urine WBC 0-2 (0-4) /HPF Ur Squamous Epith Cells 2+ /LPF Urine Bacteria NONE /LPF Urine Mucus 1+ /LPF <Orlin Fulton DO - Last Filed: 12/25/19 20:41> Discharge Plan Discharge Clinical Impression: Renal colic on right side <Aline Soto NP - Last Filed: 12/25/19 03:07> Patient Disposition: Admitted As Inpatient <Aline Soto NP - Last Filed: 12/25/19 03:07> Discharge Date/Time: 12/25/19 01:32 <STEF Daniel Last Filed: 12/25/19 03:07> [facility] Past Medical History Medical History: Medical History Asthma Kidney stones <Aline Soto NP - Last Filed: 12/25/19 03:07> Social History Social History: Social History Household Members: Family Housing: House Alcohol intake: current Alcohol intake frequency: a few times a week Smoking Status: Current every day smoker Tobacco Type: Cigarette Packs Per Day: 1 Cigarettes Per Day: 20.0 Years Smoked: 13 Second Hand Smoke Exposure: No service: No Current occupational status: unemployed <Aline Soto NP - Last Filed: 12/25/19 03:07>
[2019-12-24 22:15] VITALS: BP 157/90; PULSE 90; RESP 18; O2SAT 98
[2019-12-24 22:17] VITALS: BP 176/101; PULSE 86; RESP 18; TEMP 36.7; O2SAT 98
[2019-12-24] MEDS: HYDROmorphone HCl 1 MG/ML SYRINGE IVPUSH (22:30)
[2019-12-24 22:40] LABS: Glucose Urine UA NEG (NEG); Leukocyte Esterase Urine NEG (NEG); Nitrite Urine NEG (NEG); Urine Blood 2+ (NEG); Urine Ketones NEG (NEG); Urine Protein TRACE MG/DL (NEG-TRACE)
[2019-12-24 22:44] LABS: Appearance Urine CLEAR; Color Urine YELLOW
[2019-12-24 22:49] LABS: Mucus Urine 1+ /LPF; Squamous Epithelial Cell Urine 2+ /LPF; WBC Urine 0-2 /HPF (0-4)
--- NOTE | 2019-12-25 00:06 | PM.IMHP ---
History of Present Illness Date of Service: 12/25/19 Chief Complaint: right sided flank pain 54 y/o male with PMHX of kidney stones who presented from home due to right sided flank pain. Per history provided by the patient the pain started 3 weeks ago and has been on and off since, 1 week ago when to [facility] and was admitted due to intractable pain, was medicated for the pain and discharged home on the following day to follow up with PCP. Denies any urologic procedure done during that visit. Patient reports a significant hx of kidney stones requiring 2 procedures in the past. On presentation patient was noted to be hypertensive BP of 176/101 with HR of 86, no evidence of fever. Patient was medicated multiple times for pain control with no relieve on patient's pain. Urology was contacted per ED and decision was made for patient to go under medicine for pain control. Patient was seen and evaluated at the bedside, right CVA tenderness on percussion identified. No abdominal distention or tenderness on palpation. ROS as above otherwise negative. PMHx: Kidney stones PSx: urologic procedures for kidney stone removal Toxic habits: No hx of alcohol abuse, smoking or IVDA Review of Systems Constitutional: Constitutional: Reports as per HPI Eyes: Eyes: Reports as per HPI ENT: Reports system reviewed and no additional complaints, except as documented Cardiovascular: Cardiovascular: Reports as per HPI Musculoskeletal: Musculoskeletal: Reports back pain Comments: right sided back pain Neurologic: Reports system reviewed and no additional complaints, except as documented [facility] Medical History Asthma Kidney stones Functional capacity: independent ambulation Social History Alcohol intake: current Alcohol intake frequency: a few times a week Smoking Status: Current every day smoker Smoked in Last 30 Days: Yes Use of substances other than those prescribed or required for medical reasons: No Advance Directives: No Advance Directives Information Provided: Yes Meds Allergies Allergy/AdvReac Type Severity Reaction Status Date / Time No Known Allergies Allergy Verified 12/24/19 19:41 Physical Exam Vital Signs and Narrative: Vital Signs: Last Vital Signs Temp 98.0 F 12/24/19 22:17 Pulse 86 12/24/19 22:17 Resp 18 12/24/19 22:17 BP 176/101 H 12/24/19 22:17 Pulse Ox 98 12/24/19 22:17 Body Mass Index 24.0 Results Labs Labs: Laboratory Tests 12/24/19 12/24/19 12/24/19 20:27 20:27 20:27 WBC 8.6 RBC 4.65 Hgb 16.7 Hct 46.6 MCV 100.2 H MCH 35.9 H MCHC 35.8 RDW 14.1 Plt Count 268 MPV 9.9 Immature Gran % (Auto) 0.3 Neut % (Auto) 68.2 Lymph % (Auto) 21.0 [place] % (Auto) 8.7 Eos % (Auto) 1.2 Baso % (Auto) 0.6 Neut # (Auto) 5.9 Lymph # (Auto) 1.8 [place] # (Auto) 0.8 Eos # (Auto) 0.1 Baso # (Auto) 0.1 Abs Immat Gran (auto) 0.03 Absolute Nucleated RBC 0.000 Nucleated RBC % (auto) 0.0 Hold Blue Top SEE NOTE Sodium 140 Potassium 4.1 Chloride 103 Carbon Dioxide 24 Anion Gap 17 BUN 8 L Creatinine 1.00 Estim Creat Clear Calc 85.4 Estimated GFR > 60 Random Glucose 114 Calcium 9.6 Total Bilirubin 0.7 AST 98 H ALT 99 H Alkaline Phosphatase 96 Total Protein 7.6 Albumin 4.2 Urine Color Urine Appearance Urine pH Ur Specific [place] Urine Protein Urine Glucose (UA) Urine Ketones Urine Blood Urine Nitrite Ur Leukocyte Esterase Urine RBC Urine WBC Ur Squamous Epith Cells Urine Bacteria Urine Mucus 12/24/19 22:30 WBC RBC Hgb Hct MCV MCH MCHC RDW Plt Count MPV Immature Gran % (Auto) Neut % (Auto) Lymph % (Auto) [place] % (Auto) Eos % (Auto) Baso % (Auto) Neut # (Auto) Lymph # (Auto) [place] # (Auto) Eos # (Auto) Baso # (Auto) Abs Immat Gran (auto) Absolute Nucleated RBC Nucleated RBC % (auto) Hold Blue Top Sodium Potassium Chloride Carbon Dioxide Anion Gap BUN Creatinine Estim Creat Clear Calc Estimated GFR Random Glucose Calcium Total Bilirubin AST ALT Alkaline Phosphatase Total Protein Albumin Urine Color YELLOW Urine Appearance CLEAR Urine pH 7.0 Ur Specific [place] 1.020 Urine Protein TRACE Urine Glucose (UA) NEG Urine Ketones NEG Urine Blood 2+ H Urine Nitrite NEG Ur Leukocyte Esterase NEG Urine RBC 15-29 H Urine WBC 0-2 Ur Squamous Epith Cells 2+ Urine Bacteria NONE Urine Mucus 1+ Assessment and Plan (1) Obstructive uropathy: Status: Acute BP remains elevated but improving with pain control Regular diet as patient is tolerated Flomax STAT as ordered IV fluids for hydration Pain control as ordered Urology consult for obstructive uropathy
[2019-12-25] MEDS: Tamsulosin HCL 0.4 MG CAPSULE PO ×2 (01:01→09:03)
[2019-12-25] MEDS: HYDROmorphone HCl 1 MG/ML SYRINGE IVPUSH (01:01)
[2019-12-25] MEDS: 0.9 % Sodium Chloride Flush 3 ML SYRINGE 2 ML IVFLUSH (02:22)
[2019-12-25] MEDS: oxyCODONE HCl Immed Release 5 MG TABLET PO (02:22)
[2019-12-25] MEDS: 0.9 % Sodium Chloride 1,000 ML 100 ML IVCONT (02:23)
[2019-12-25 02:24] VITALS: BP 160/94; PULSE 81; RESP 16; TEMP 36.4; O2SAT 96
[2019-12-25 04:25] VITALS: BP 162/91; PULSE 76; RESP 20; TEMP 36.4; O2SAT 96
[2019-12-25] MEDS: HYDROmorphone HCl 0.5 MG/0.5 ML SYRINGE IVPUSH (06:12)
[2019-12-25 06:44] LABS: Basophils Percent Auto 0.1 % (0-2); Hematocrit 44.3 % (42-52); Hemoglobin 15.3 g/dl (14.0-18.0); Imm Gran Abs Auto 0.03 X10*3/uL (0.00-0.03); Imm Gran Pct Auto 0.3 % (0.0-0.4); Lymphocytes Absolute Auto 0.7 X10*3/uL (1.2-4.9); Lymphocytes Percent Auto 6.8 % (20-40); MANUAL DIFF FLAG SCAN; Mean Corpuscular HGB Conc 34.5 g/dl (31.0-36.0); Mean Corpuscular Hemoglobin 35.2 pg (27.0-33.0); Mean Corpuscular Volume 101.8 fL (80-98); Mean Platelet Volume 10.2 fL (9.4-12.4); Monocytes Absolute Auto 0.1 X10*3/uL (0.1-1.2); Monocytes Percent Auto 1.3 % (2-11); Neutrophils Absolute Auto 8.7 X10*3/uL (2.0-8.3); Neutrophils Percent Auto 91.5 % (45-73); Platelet Count 239 X10*3/uL (160-400); Red Blood Count 4.35 X10*6/uL (4.60-5.80); Red Cell Distribution Width 14.1 % (11.0-16.0); SCAN SMEAR FLAG 1; White Blood Count 9.5 X10*3/uL (4.8-10.8)
[2019-12-25 07:45] VITALS: PULSE 85; RESP 20; TEMP 36.1; O2SAT 95
[2019-12-25 07:51] LABS: Anion Gap 13 (12-20); Blood Urea Nitrogen 10 mg/dL (9-16); Calcium 8.3 mg/dL (8.4-10.2); Carbon Dioxide 22 mmol/L (22-29); Chloride 105 mmol/L (96-108); Creatinine Clr Calc Pharmacy 77.6; Estimated Glomerular Filt Rate > 60; Glucose Random 207 mg/dL (60-115); Potassium 4.6 mmol/l (3.3-5.1); Sodium 135 mmol/L (135-145)
[2019-12-25 08:00] VITALS: BP 148/95; PULSE 85; RESP 20; TEMP 36.1; O2SAT 95
[2019-12-25 08:28] LABS: SLIDE REVIEW VERIFIED
[2019-12-25] MEDS: Enoxaparin Sodium 40 MG/0.4 ML SYRINGE SUBCUT (09:03)
--- NOTE | 2019-12-25 09:19 | PC.NURSE ---
Addendum entered by Madeline Luna RN 12/25/19 11:03: DR. GOEL STATED HE WOULD SEE PT IN BETWEEN CASES. Original Note: PT EXPLAINED NPO STATUS AND PLAN FOR SURGERY, WITH HELP OF [employer] SPEAKING STAFF PT EXPLAINED NOT WANTING TO WAIT FOR SURGERY AND WOULD LIKE TO SPEAK TO THE DR, NOTIFIED DR. GOEL.
--- NOTE | 2019-12-25 11:03 | PC.NURSE ---
PATIENT STATES WANT TO LEAVE AMA. PATIENT STATES HE DOES NOT WANT TO WAIT FOR SURGERY OR WAIT TO TALK TO DR. GOEL. NOTIFIED DOCTOR WHIT. CALLED THE INSIDE SALES COORDINATOR TO COME SPEAK TO THE PATIENT WITH RN AND MD. SPOKE TO THE OR DESK TO GET A MESSAGE TO DR. GOEL CONCERNING PATIENT LEAVING. DOCTOR WHIT IN PATIENT'S ROOM TO SPEAK WITH HIM AND THE INSIDE SALES COORDINATOR.
--- NOTE | 2019-12-25 11:23 | P.PNUR_ITS ---
Subjective Subjective Patient reports: no new complaints Interval history: Seen this am Per nurse pain is better Tried to discuss procedure Needs interpretor Will see later in day Physical Exam Vital Signs and I&O and Narrative: Vital Signs and I&O: Vital Signs Temp 96.9 F 12/25/19 08:00 Pulse 85 12/25/19 08:00 Resp 20 12/25/19 08:00 BP 148/95 H 12/25/19 08:00 Pulse Ox 95 12/25/19 08:00 Intake & Output 12/24/19 12/25/19 12/25/19 18:59 06:59 18:59 Intake Total 1120 / 1120 240 / 240 Output Total 450 / 450 Balance 670 / 670 240 / 240 Urine Output ([place] ml/kg/hr) 0.51 0.51 Weight 163 lb Intake: Intake, Oral [place] unt 120 / 120 240 / 240 Intake, IV Amoun t 1000 / 1000 0.9 % Sodium C hloride 1,000 ml 1000 / 1000 @ 999 mls/hr I VCONT .Q1H1M [facility] Rx#:[id number] Output: Output, Urine Am ount 450 / 450 Other: Meal Refused No NPO No Breakfast % Eate n 100% Number of Incont inent Voids 1 Urine Urinal Urine Color [place] Body Mass Index 24.0 Const: General: cooperative, healthy appearing, comfortable and no acute distress Nutritional Appearance: average body habitus Orientation/consciousness: oriented to person, oriented to place and oriented to time Eyes: General: appearance normal, both eyes and all related structures Chest: Chest palpation & inspection: normal inspection of the chest Resp: Effort & Inspection: normal respiratory effort Cardio: Rate: regular rate GI: Inspection: Yes normal to inspection Skin: Hair: normal Neuro: General: oriented to person, oriented to place and oriented to time Extrem: General: Yes normal to inspection Progress Note: A&P Assessment and plan (1) Obstructive uropathy: Status: Acute (2) Renal colic on right side: Status: Acute Assessment and Plan: If persistent pain rescommend operative intervention Fall Risk Details Current Medications: Current Medications Generic Name Dose Route Start Last Admin Trade Name Freq PRN Reason Stop Dose Admin Enoxaparin Sodium 40 mg 12/25/19 09:00 12/25/19 09:03 Enoxaparin Sodium 40 Mg/0.4 Ml Syringe SUBCUT 40 mg Q24H [facility]OS[facility] Administration Sodium Chloride 1,000 mls @ 100 mls/hr 12/25/19 01:42 12/25/19 02:23 Ns IVCONT 100 mls/hr .Q10H [facility] Administration Morphine Sulfate 2 mg 12/25/19 08:29 Morphine Sulfate 2 Mg/Ml Cartridge IVPUSH Q3H PRN pain Oxycodone HCl 5 mg 12/25/19 01:42 12/25/19 02:22 Oxycodone Hcl Immed Release 5 Mg Tablet PO 5 mg Q6H PRN Administration Pain, Severe (Pain Scale 7-10) Sodium Chloride 2 ml 12/25/19 01:42 12/25/19 07:58 0.9 % Sodium Chloride Flush 3 Ml Syringe IVFLUSH Not Given QSHIFT YOSSI Tamsulosin HCl 0.4 mg 12/25/19 09:00 12/25/19 09:03 Tamsulosin Hcl 0.4 Mg Capsule PO 0.4 mg DAILY YOSSI Administration Time Spent With Patient Time: Total time spent is greater than 50% in coordination of care (as documented) at patient's floor/unit and/or counseling patient: Time with patient: 15 - 24 minutes
--- NOTE | 2019-12-25 11:27 | MHC.CM.PN ---
nurse career counselor eliza electronic medical record reviewed along with case discussed on multipe disciplianry rounds met with patient he reported that he lives with his sister greg brasher and his girlfriend,,rebecca higgins is his next of kin/person to notify. he is independnt in all adls and mobility \with out the use of any device, he reprted that he smokes 1 pack daily of cigarrettes, he socially drinks and reported past history of drug abuse at a very age he is not ionvlved with methadone or suboxone clinics , he has no vna r dme servcies in the home, he reportedt hat he goes to the [facility] mental health counseling. he is awaiting for a urological procedure to be done today and anticipates that he will not need any services post discharge . discharge plan home with no services pcp dr ilene jeter patient will call and make appointment follow up with urology dr mueller per discharge instructions transportation family [place] form expained to him withy [facility] [place] interperter medina solomon card attached
--- NOTE | 2019-12-25 11:32 | PC.NURSE ---
DR SHERMAN AT BEDSIDE WITH PIPE MACHINE OPERATOR, PT STILL WANTS TO LEAVE AMA, AMA FORM SIGNED.
--- NOTE | 2019-12-25 12:32 | PM.DS ---
DS: Providers Provider Date of admission: 12/25/19 00:03 Primary care physician: Luz Crump MD Consults: 12/25/19 00:16 Consult to Urology Routine Consulting Provider[place] [facility] Reason for consultation: obstructive uropathy Has provider been notified: Yes 12/25/19 01:42 Consult to Physician Routine Consulting Provider: [facility] Reason for consultation: urolithiasis Has provider been notified: Yes DS: Diagnosis Discharge Diagnosis (1) Obstructive uropathy: Status: Acute (2) Renal colic on right side: Status: Acute DS: Summary Hospital Course Hospital Course: patient was admitted for obstructing stone, he was offered cystoscopy but elected to leave AMA. he is aware of risks incluyding . Time Spent with Patient Time attestation: Total time spent providing and/or coordinating discharge services: Physical Exam Vital Signs and I&O and Narrative: Vital Signs and I&O: Vital Signs Temp 96.9 F 12/25/19 08:00 Pulse 85 12/25/19 08:00 Resp 20 12/25/19 08:00 BP 148/95 H 12/25/19 08:00 Pulse Ox 95 12/25/19 08:00 Intake & Output 12/24/19 12/25/19 12/25/19 18:59 06:59 18:59 Intake Total 1120 / 1120 240 / 240 Output Total 450 / 450 Balance 670 / 670 240 / 240 Urine Output (Aver age ml/kg/hr) 0.51 0.51 Weight 73.936 kg Intake: Intake, Oral [place] unt 120 / 120 240 / 240 Intake, IV Amoun t 1000 / 1000 0.9 % Sodium C hloride 1,000 ml 1000 / 1000 @ 999 mls/hr I VCONT .Q1H1M [facility] Rx#:[id number] Output: Output, Urine Am ount 450 / 450 Other: Meal Refused No NPO No Breakfast % Eate n 100% Number of Incont inent Voids 1 Urine Urinal Urine Color [place]anu Body Mass Index 24.0 DS: Data Data Completed and Pending Labs on day of discharge: Labs from last 24 hours 12/25/19 12/25/19 12/24/19 06:11 06:11 22:30 WBC 9.5 RBC 4.35 L Hgb 15.3 Hct 44.3 MCV 101.8 H MCH 35.2 H MCHC 34.5 RDW 14.1 Plt Count 239 MPV 10.2 Immature Gran % (Auto) 0.3 Neut % (Auto) 91.5 H Lymph % (Auto) 6.8 L [place] % (Auto) 1.3 L Eos % (Auto) 0.0 Baso % (Auto) 0.1 Neut # (Auto) 8.7 H Lymph # (Auto) 0.7 L [place] # (Auto) 0.1 Eos # (Auto) 0.0 Baso # (Auto) 0.0 Abs Immat Gran (auto) 0.03 Absolute Nucleated RBC 0.000 Nucleated RBC % (auto) 0.0 Smear Tech's Comments VERIFIED Hold Blue Top Sodium 135 Potassium 4.6 Chloride 105 Carbon Dioxide 22 Anion Gap 13 BUN 10 Creatinine 1.10 Estim Creat Clear Calc 77.6 Estimated GFR > 60 Random Glucose 207 H D Calcium 8.3 L Total Bilirubin AST ALT Alkaline Phosphatase Total Protein Albumin Urine Color YELLOW Urine Appearance CLEAR Urine pH 7.0 Ur Specific [place] 1.020 Urine Protein TRACE Urine Glucose (UA) NEG Urine Ketones NEG Urine Blood 2+ H Urine Nitrite NEG Ur Leukocyte Esterase NEG Urine RBC 15-29 H Urine WBC 0-2 Ur Squamous Epith Cells 2+ Urine Bacteria NONE Urine Mucus 1+ 12/24/19 12/24/19 12/24/19 20:27 20:27 20:27 WBC 8.6 RBC 4.65 Hgb 16.7 Hct 46.6 MCV 100.2 H MCH 35.9 H MCHC 35.8 RDW 14.1 Plt Count 268 MPV 9.9 Immature Gran % (Auto) 0.3 Neut % (Auto) 68.2 Lymph % (Auto) 21.0 [place] % (Auto) 8.7 Eos % (Auto) 1.2 Baso % (Auto) 0.6 Neut # (Auto) 5.9 Lymph # (Auto) 1.8 [place] # (Auto) 0.8 Eos # (Auto) 0.1 Baso # (Auto) 0.1 Abs Immat Gran (auto) 0.03 Absolute Nucleated RBC 0.000 Nucleated RBC % (auto) 0.0 Smear Tech's Comments Hold Blue Top SEE NOTE Sodium 140 Potassium 4.1 Chloride 103 Carbon Dioxide 24 Anion Gap 17 BUN 8 L Creatinine 1.00 Estim Creat Clear Calc 85.4 Estimated GFR > 60 Random Glucose 114 Calcium 9.6 Total Bilirubin 0.7 AST 98 H ALT 99 H Alkaline Phosphatase 96 Total Protein 7.6 Albumin 4.2 Urine Color Urine Appearance Urine pH Ur Specific [place] Urine Protein Urine Glucose (UA) Urine Ketones Urine Blood Urine Nitrite Ur Leukocyte Esterase Urine RBC Urine WBC Ur Squamous Epith Cells Urine Bacteria Urine Mucus Discharge Plan Discharge Patient Disposition: Left Against Medical Advice Referrals: Luz Crump MD [Primary Care Provider] - Discharge Medications: No Action albuterol RF: 0 lisinopril RF: 0 melatonin RF: 0 Discharge Orders: Discharge Order (Routine); Ordered 12/25/19 Ordered By: Link Carty Discharge Date/Time: 12/25/19 11:25 Care Plan Goals: ama Health Concerns: ama Plan of Treatment: ama
--- NOTE | 2019-12-25 12:52 | MHC.CM.PN ---
NURSE EPOXY COATINGS INSTALLER NOTE INFRMED BY STAFF NURSE THAT PATIENT SIGHNED OUT AGAINST MEDICAL ADVICE
== END 2019-12-25 11:25 | disposition left against medical advice (07) | DRG 468 ==
LOC: HO.ED 22:21 → HO.S3 12-25 00:35
PROVIDERS: Physician Assistant; Admitting Provider Internal Medicine; Emergency Provider Emergency Medicine; PCP Pediatrics; Visit Provider Internal Medicine
DX: N13.9 Obstructive and reflux uropathy, unspecified (principal); F17.210 Nicotine dependence, cigarettes, uncomplicated; N20.0 Calculus of kidney; J45.909 Unspecified asthma, uncomplicated; Z87.442 Personal history of urinary calculi; Z71.6 Tobacco abuse counseling; Z79.899 Other long term (current) drug therapy
CPT/HCPCS: 36415; 74176; 76775; 80048; 80053; 81001; 85025; 96361; 96374; 96375; 96376; 99284; 99285; J1100; J1170; J1650; J1885; J2270

== ENCOUNTER 2020-04-05 11:08 | Outpatient (REF) | payer OTHER, SELFPAY | END 2020-04-05 11:09 | disposition home or self-care (01) | LOC: HO.LAB 11:08 | PROVIDERS: Visit Provider Internal Medicine | DX: Z20.822 Contact with and (suspected) exposure to COVID-19 (principal) | CPT/HCPCS: 36415; C9803; U0003 ==

== ENCOUNTER 2020-04-13 17:04 | Emergency (ER) | payer OTHER, SELFPAY ==
[2020-04-13 17:09] VITALS: BP 160/102; PULSE 102; RESP 18; TEMP 37.1; O2SAT 96; BMI 24.0
--- NOTE | 2020-04-13 18:12 | XR_ITS ---
EXAMINATION: XR CHEST CLINICAL INFORMATION: SOB. COMPARISON: Chest x-ray 01/11/2019 TECHNIQUE: Frontal view of the chest was obtained. FINDINGS: No significant abnormality is noted involving the heart, lungs, mediastinum, bony thorax or soft tissues. XR/XR chest 1V IMPRESSION: Unremarkable chest exam.
--- NOTE | 2020-04-13 18:26 | ED_ITS ---
HPI - General Adult General Chief complaint: General Medical Stated complaint: BODY ACHES Time Seen by Provider: 04/13/20 18:12 Source: patient and junior staff accountant Mode of arrival: ambulatory Limitations: no limitations and language barrier History of Present Illness HPI narrative: 54-year-old male with a past medical history of asthma and renal colic here with complaints of dry cough, body aches, chills x4 days. No shortness of breath or chest pain or vomiting or diarrhea. No fevers. Niece is COVID positive. Onset (ago): day(s) Related Data Home Medications Medication Instructions Recorded Confirmed albuterol 12/25/19 lisinopril 12/25/19 melatonin 12/25/19 Previous Rx's Medication Instructions Recorded prednisone 40 mg PO DAILY #10 tab 04/13/20 Allergies Allergy/AdvReac Type Severity Reaction Status Date / Time No Known Allergies Allergy Verified 04/13/20 17:08 Review of Systems Review of Systems: Yes all other systems are reviewed and are negative Constitutional: Constitutional: Reports no additional constitutional complaints, Reports body ache(s), Reports chills, Denies fever(s), Denies headache(s) and Denies weakness Eyes: Eyes: Reports no additional eye complaints and Denies change in vision ENT: Reports system reviewed and no additional complaints, except as documented, Denies dizziness, Denies headache(s), Denies nasal congestion, Denies nasal discharge and Denies neck pain Cardiovascular: Cardiovascular: Reports no additional cardiovascular complaints, Denies chest pain, Denies leg edema and Denies dyspnea Respiratory: Respiratory: Reports no additional respiratory complaints, Reports cough and Denies dyspnea Gastrointestinal: Gastrointestinal: Reports no additional gastrointestinal complaints, Denies abdominal pain, Denies diarrhea, Denies nausea and Denies vomiting Genitourinary: Genitourinary: Denies urinary incontinence Musculoskeletal: Musculoskeletal: Reports no additional musculoskeletal complaints, Denies back pain, Denies arthralgias, Denies joint swelling, Denies neck pain, Denies numbness and Denies tingling Integumentary/Breasts: Skin/Breast: Reports system reviewed and no additional complaints, except as docu and Denies rash Neurologic: Reports system reviewed and no additional complaints, except as documented, Denies Abnormal speech present, Denies dizziness, Denies headache(s), Denies numbness, Denies tingling and Denies weakness [facility] Past Medical History Attestation statement: The following information was validated with the patient. Source: old records reviewed and nursing notes reviewed Medical History Asthma Kidney stones Social History Social History Household Members: Family Housing: House Alcohol intake: current Alcohol intake frequency: a few times a week Smoking Status: Current every day smoker Tobacco Type: Cigarette Packs Per Day: 1 Cigarettes Per Day: 20.0 Years Smoked: 13 Second Hand Smoke Exposure: No Advance Directives: No Advance Directives Information Provided: Yes service: No Current occupational status: unemployed Physical Exam Vital Signs: Vital Signs: Last Vital Signs Temp 98.8 F 04/13/20 17:09 Pulse 99 04/13/20 19:16 Resp 18 04/13/20 19:16 BP 167/102 H 04/13/20 19:16 Pulse Ox 95 04/13/20 19:16 Body Mass Index 24.0 Const: General: cooperative, healthy appearing, comfortable and no acute distress Orientation/consciousness: patient oriented x3 Limitations: no limitations HENMT: Head: Yes normal to inspection Ears: hearing grossly normal bilaterally General nose exam: Normal external nose present Face and sinus: Yes normal facial exam Mouth: Normal oral and palatal mucosa present Throat: Yes posterior oropharynx normal Eyes: General: appearance normal, both eyes and all related structures Pupils: Equal, round and reactive pupils present Neck: Neck: Yes normal visual inspection Chest: Chest palpation & inspection: normal inspection of the chest Resp: Other: Mild expiratory wheezing Effort & Inspection: normal respiratory effort Cardio: Rate: regular rate Rhythm: regular rhythm Peripheral pulses: Peripheral pulses 2+ throughout GI: Inspection: Yes normal to inspection Palpation (GI): Soft to palpation and nontender Auscultation: normal bowel sounds Back/Spine/Pelvis: Thoracic/Lumbar Spine: thoracic and lumbar spine normal to inspection Skin: General skin exam: no rashes or lesions noted Neuro: General: patient oriented x3, no focal motor deficits and normal sensation to monofilament Cranial nerves: Yes Equal, round and reactive pupils present Cognition (Neuro): normal cognition Speech: No Abnormal speech present Gait exam (Neuro): Normal gait present Motor exam (neuro): 5/5 motor strength present throughout Extrem: General: Yes normal to inspection Course Course Course Narrative: 54-year-old male here with body aches, chills, cough times several days. Recent COVID exposure. Will check chest x-ray, COVID test here. Patient has some mild expiratory wheezing so will give him albuterol puffer and oral Pred and reassess. 194-chest x-ray negative. COVID positive. Stable vital signs including pulse oximeter. Reviewed worrisome signs and symptoms and when to return to the emergency department. Comfortable discharge home. Medical Decision Making Medical Records Medical records reviewed: Yes I reviewed the patient's medical records. Lab Data Lab results reviewed: Yes I reviewed the patient's lab results. Labs: Lab Results 04/13/20 Range/Units 18:18 COVID-19 ([facility]) Positive A (Negative) COVID-19 Clin Com See Note Imaging Data Chest x-ray: Attestation: I personally reviewed and interpreted this imaging study as follows: Radiologist's impression: EXAMINATION: XR CHEST CLINICAL INFORMATION: SOB. COMPARISON: Chest x-ray 01/11/2019 TECHNIQUE: Frontal view of the chest was obtained. FINDINGS: No significant abnormality is noted involving the heart, lungs, mediastinum, bony thorax or soft tissues. XR/XR chest 1V IMPRESSION: Unremarkable chest exam. Discharge Plan Discharge Clinical Impression: COVID-19 Asthma Qualifiers: Asthma severity: moderate Asthma persistence: persistent Asthma complication type: unspecified Qualified Code(s): J45.40 - Moderate persistent asthma, uncomplicated Patient Disposition: Home, Self-Care Instructions: Asthma (ED), COVID-19 (Coronavirus Disease 2019) (ED) Additional Instructions: Start prednisone tomorrow Take your albuterol 2 puffs every 4-6 hrs You tested positive today for COVID-19. You need to quarantine for total of 10 days and your symptoms must be resolved for 24 hours prior to returning to any activities Take Motrin or Tylenol if able as needed for pain or fever Increase fluids, rest Return for worsening shortness of breath, chest pain or fever which is unrelieved with Motrin and Tylenol Consider buying a pulse oximeter and monitor oxygen saturations and return to the hospital for oxygen saturations less than 90% Prescriptions: New prednisone 20 mg tablet 40 mg PO DAILY Qty: 10 RF: 0 No Action albuterol RF: 0 lisinopril RF: 0 melatonin RF: 0 Referrals: Physician,Unknown [Primary Care Provider] - 2 days Interventions: ED Discharge Assessment Last Done: 04/13/20 19:21 Discharge Date/Time: 04/13/20 19:22 Print Language: [place]
[2020-04-13 18:48] LABS: COVID-19 Test Positive (Negative); IDNOW Serial# 9DD0AD1C
[2020-04-13] MEDS: predniSONE 20 MG TABLET 60 MG PO (19:10)
[2020-04-13 19:16] VITALS: BP 167/102; PULSE 99; RESP 18; O2SAT 95
[2020-04-13] MEDS: Albuterol Sulfate 90 MCG 8 GM INHALER 2 PUFF INHALE (19:18)
== END 2020-04-13 19:22 | disposition home or self-care (01) ==
PROVIDERS: Nurse Practitioner Family; Emergency Provider Emergency Medicine Emergency Medical Services
DX: U07.1 COVID-19 (principal); J45.40 Moderate persistent asthma, uncomplicated; M79.10 Myalgia, unspecified site; F17.210 Nicotine dependence, cigarettes, uncomplicated; Z71.6 Tobacco abuse counseling; Z79.899 Other long term (current) drug therapy
CPT/HCPCS: 36415; 71045; 87635; 99283; 99284

== ENCOUNTER 2020-04-23 06:19 | Outpatient (REF) | payer OTHER, SELFPAY | END 2020-04-23 06:20 | disposition home or self-care (01) | LOC: HO.LAB 06:19 | PROVIDERS: Visit Provider Internal Medicine | DX: Z20.822 Contact with and (suspected) exposure to COVID-19 (principal) | CPT/HCPCS: 36415; C9803; U0003; U0005 ==

== ENCOUNTER 2020-05-23 07:44 | Outpatient (REF) | payer OTHER, SELFPAY | END 2020-05-23 07:45 | disposition home or self-care (01) | LOC: HO.LAB 07:44 | PROVIDERS: Visit Provider Internal Medicine | DX: Z20.822 Contact with and (suspected) exposure to COVID-19 (principal) | CPT/HCPCS: 36415; C9803; U0003; U0005 ==